=== PATIENT | female | born 1985 | race Caucasian/White ===

== ENCOUNTER → 2018-04-28 15:14 | Outpatient (CLI) | payer BC, SELFPAY ==
--- NOTE | 2018-04-28 15:18 | RAD_ITS ---
STUDY: X-RAY CHEST REASON FOR EXAM: Female, 32 years old. 2 week history of cough. TECHNIQUE: PA and lateral views of the chest. COMPARISON: None. FINDINGS: Mild degree of increased bilateral perihilar markings suggestive of possible bronchitis. No focal infiltrate is seen. There is no demonstrated pleural abnormality. Normal size heart. Normal mediastinum and elsie. Normal visualized pulmonary arteries. Normal visualized aortic arch and descending thoracic aorta. Normal visualized thoracic spine. Normal visualized ribs, clavicles, and shoulders. There is no demonstrated abnormality of the visualized soft tissue structures of the upper abdomen. RAD/Chest PA and Lateral IMPRESSION: Mild degree of increased bilateral perihilar markings suggestive of bronchitis. Electronically Signed: Michael Preciado MD at 15:34 EDT Tel [phone], Service support ,
== END ==
PROVIDERS: Visit Provider Physician Assistant Surgical
DX: R09.89 Other specified symptoms and signs involving the circulatory and respiratory systems (principal)
CPT/HCPCS: 71046

== ENCOUNTER → 2021-07-17 13:55 | Outpatient (CLI) | payer OTHER, SELFPAY | PROVIDERS: PCP Family Medicine; Referring Provider Family Medicine; Visit Provider Family Medicine | DX: Z23 Encounter for immunization (principal) ==

== ENCOUNTER 2021-12-21 05:51 | Day surgery (SDC) | payer BC, SELFPAY ==
--- NOTE | 2021-12-11 16:09 | PCM.HP.BLA ---
History and Physical Date of Admission: 12/21/21 HPI: The patient is a 36 year old female presenting for pre-operative visit. She is scheduled for hysteroscopy with endometrial ablation and IUD (Lyletta or mirena), for menorrhagia on 12/21/21. Procedure discussed along with risks, benefits and complications. Other alternatives discussed for management. Consent form signed? Yes. ? ? PAST MEDICAL HISTORY PAST MEDICAL HISTORY Diagnosis Date ? NEGATIVE MEDICAL HISTORY ? ? ? PAST SURGICAL HISTORY PAST SURGICAL HISTORY Procedure Laterality Date ? TONSILLECTOMY PRIMARY/SECONDARY <AGE 10 ? ? ? Tonsillectomy ? ? ? CURRENT MEDICATIONS Current Outpatient Medications Medication Sig Dispense Refill ? ferrous sulfate (IRON ORAL) Take by mouth. ? ? ? MAGNESIUM ORAL Take by mouth. ? ? ? ASHWAGANDHA ROOT EXTRACT ORAL Take by mouth. With fco root ? ? ? miSOPROStol (CYTOTEC) 200 mcg tablet Use 2 tablets vaginally as directed for [address] 2 tablets vaginally qhs before the procedure and 2 the morning of 4 tablet 0 ? tranexamic acid (LYSTEDA) 650 mg tablet Take 2 tablets by mouth three times daily as needed (heavy menstrual bleeding) for up to 5 days. 30 tablet 0 ? norethindrone (AYGESTIN) 5 mg tablet Take 1 tablet by mouth once daily. ONE PO Q 1 HR UNTIL BLEEDING SLOWS, UP TO 5 TABS TODAY. THEN ONE PO QID X 3 DAYS THEN TID X 3 DAYS THEN BID X 3 DAYS THEN ONE QDAY. 30 tablet 1 ? No current facility-administered medications for this visit. ? ? ALLERGIES: Patient has no known allergies. ? PERSONAL HISTORY: SOCIAL HISTORY Social History ? Tobacco Use ? Smoking status: Never Smoker ? Smokeless tobacco: Never Used Substance Use Topics ? Alcohol use: Yes ? ? Comment: Socially ? Drug use: No ? FAMILY HISTORY: FAMILY HISTORY FAMILY HISTORY Problem Relation Age of Onset ? other (Ovarian Cysts [Other]) Maternal Grandmother ? ? other (Ovarian Cysts [Other]) Mother ? ? Diabetes Father ? ? Hypertension Father ? ? Cancer Paternal Grandfather ? ? ? REVIEW OF SYMPTOMS: GENERAL: denies fevers or chills ENDOCRINOLOGY: has not been on steroids Cardiology : denies palpitations or chest pain Respiratory: denies SOB or cough Hematology: denies history of prolonged bleeding or easy bruising or VTE Allergy: Denies history of personal or family history of allergy to anesthesia ? ? PHYSICAL EXAMINATION: ? VITALS: Blood pressure 132/88, pulse 80, resp. rate 14, height 6' 0.25 (1.835 m), weight 281 lb 9.6 oz (127.7 kg), last menstrual period 12/03/2021. ? GENERAL: The patient is well nourished, well hydrated in no acute distress. , The patient is oriented to time, place, and person. NECK: Supple. No lynphadenopathy, normal thyroid, no thyromegaly. LUNGS: Clear to auscultation bilaterally. no wheezes, rhonchi or rales HEART: Regular rate and rhythm, Normal heart sounds and No murmurs or gallops ? Pelvic US on 09/27/21 Impression Retroverted fibroid uterus that measures 91 mm x 52 mm x 67 mm. The fibroid is described below. The fibroid is intramural. Fibroid(s): Size 19 mm x 23 mm x 22 mm. Mean 21.3 mm. Vol 5.034 cm?. Right, lower uterine segment. The central endometrium complex measures 11.6 mm in combined thickness. No abnormal blood flow to suggest a polyp or focal endometrial pathology is observed within the endometrial complex. The contour of the endometrial cavity was normal on 3-D imaging. Both ovaries are visualized and appear polycystic. No adnexal masses were observed. There is no free fluid visualized in the peritoneal cavity. ? EMB reviewed- benign 09/2021 pap 2018- neg w/ neg HRHPV ? IMPRESSION: menorrhagia ? PLAN: The risks/benefits/alternatives and personal involved for the planned Hysteoscop;y with endometrial ablation and IUD insertion were reviewed with the patient. Her questions were answered to her satisfaction and she desires to proceed. Consent was signed. I reviewed with her postop instructions and expectations. ? ? I have reviewed and updated past medical and surgical history, medications and allergies Assessment & Plan Assessment/Plan (1) Abnormal uterine bleeding (AUB):
[2021-12-21] VITALS (16 sets, daily range): BP systolic 149–194; BP diastolic 82–124; PULSE 66–87; RESP 16–18; TEMP 36.3–36.8; O2SAT 97–100; BMI 37.5
--- NOTE | 2021-12-21 | EMB_PTH ---
PATIENT: LILY MELCHOR LOC: [facility] [place] U#:[id number] AGE/SX: 36/F ROOM: RE12/21/[address]: Dr. Ronit Monk MD : [id number] BED: DIS: 12/21/2021 SPEC #: [id number] RECD: 12/21/21 11:18 STATUS: SAHARA LAZAR #: [id number] DEMOND: 12/21/21 00:[address]: Ronit Monk DEPT: SURGICAL PATHOLOGY RECD BY: Yogi Gomez ENTERED: 12/21/21 11:19 SP TYPE: ENDOM BX/C OTHR DR: Dr. Sudheer Chanel MD Tissues: Endometrium, NOS Procedures: Surgery Specimen Level IV HEADER OPERATION: Hysteroscopy with Natasha ablation, Mirena IUD insertion PRE-OP DIAGNOSIS: Menorrhagia TISSUE SUBMITTED: Endometrial curettings MICROSCOPIC DIAGNOSIS Endometrial curettings: Simple endometrial hyperplasia without atypia. SJ:gege 12/22/2021 MICROSCOPIC DESCRIPTION Slides are reviewed. GROSS DESCRIPTION Received in fixative is one container labeled with the patient's name and designated endometrial curettings. The specimen consists of multiple fragments of hemorrhagic soft tissue mixed with fernandez soft tissue that in aggregate measure 7.5 x 2.5 x 0.3 cm. The specimen is totally submitted in three cassettes. / THO:gege 12/21/2021 TC:5 CPT: 54110
[2021-12-21 06:28] LABS: Internal QC Validated? YES +Cl - CLEAR BKGD; Pregnancy, Urine Negative Negative
[2021-12-21] MEDS: Celecoxib 200 MG Capsule 400 MG PO (06:28)
[2021-12-21] MEDS: Acetaminophen 500 MG Tablet 1000 MG PO (06:28)
[2021-12-21] MEDS: Lactated Ringers 1,000 ML 70 ML IV (06:29)
[2021-12-21 06:43] LABS: Absolute Lymphocyte Count 2.01 X10^3/uL (0.83-4.51); Absolute Neutrophil Count 4.6 X10^3/uL (2.0-7.7); Basophil# 0.05 X10^3/uL; Basophil% 0.7 % (0-1); Eosinophils% 2.7 % (0-5); Hematocrit 40.6 % (37-47); Hemoglobin 13.4 g/dL (12.0-15.0); Lymphocyte # 2.01 X10^3/ul (0.83-4.51); Lymphocyte % 27.2 % (19-41); Mean Corpuscular Hgb 27.2 pg (27.0-32.0); Mean Corpuscular Volume 82.5 fL (81-99); Mean Platelet Vol. 11.4 fl (6.2-12.0); Monocyte# 0.55 X10^3/uL; Monocyte% 7.4 % (0-10); NRBC Flagged by Analyzer 0 % (0-5); Neutrophil # 4.58 X10^3/uL (2.7-7.7); Neutrophil % 61.9 % (47-70); Platelet Count 239 K/mm3 (150-450); RBC Distribution Width CV 16.1 % (11.6-14.6); RBC Distribution Width SD 48.4 fl (35.1-43.9); Red Blood Count 4.92 M/mm3 (4.2-5.4); White Blood Count 7.4 K/mm3 (4.4-11.0)
--- NOTE | 2021-12-21 07:36 | DCINST_ITS ---
Discharge Instructions Diet Discharge Diet: No restrictions Activity May resume sexual activity in: 2 weeks Lifting Restrictions: none Dressing / Incision Call your doctor if your incision/area has: Sudden Increased Bleeding and Foul Smelling Discharge Call your doctor if you observe: Fever of 101 or Higher and Using more than 1 pad per hour (for 2 hrs in a row) Follow Up Care Please Follow Up With: Ronit Monk MD When: 2-4 weeks or as needed. Call [phone] to make an appointment or with any concerns. Test Results: Test results from this visit will be discussed in further detail at your follow-up appointment, if applicable. Discharge Plan Admission Primary Reason for Your Visit: ENdometrial ablation and IUD insertion Attending Provider: Ronit Monk Primary Care Provider: Sudheer Chanel Discharge Orders/Prescriptions Prescriptions: Continued magnesium 250 mg Tablet 250 mg PO DAILY RF: 0 cyanocobalamin (vitamin B-12) 25 mcg Tablet 50 mcg PO DAILY RF: 0 cholecalciferol (vitamin D3) [Vitamin D3] 25 mcg (1,000 unit) Capsule 25 mcg PO DAILY RF: 0 Proestro 1 tablet PO/SL DAILY RF: 0 Other Ambulatory Orders: CBC-Complete Blood Cnt No Diff (Routine) Timeframe: 20211214 Facility: [facility] - Location: Laboratory Ordered By: Dr. Ronit Monk ,Urine (Routine) Timeframe: 20211220 Facility: [facility] - Location: Laboratory Ordered By: Dr. Ronit Monk Referrals / Follow Up: Sudheer Chanel MD [Primary Care Provider] - Disposition Disposition (needs filled in before D/C Order can be placed): Home, Self Care
--- NOTE | 2021-12-21 07:37 | PCM.OPRPT ---
Problems Associated Problem List Diagnoses (1) Abnormal uterine bleeding (AUB): Report of Operation Date of Procedure: 12/21/21 Pre-Operative Diagnosis: Menorrhagia Post-Operative Diagnosis: same Surgery/Procedure Performed:: hysteroscopy with endometrial ablation and IUD insertion Description of Surgical Findings:: normal cervix adn vagina. Lush endoemtrium Surgeon: Ronit Monk hand mold maker: yohan Type of Anesthesia: MAC/Supplemental/Local Anesthesiologist: Char Cuevas Special Medications: none Specimen's removed: none Drains: none Estimated Blood Loss (mL): 10 Fluids Replaced: 700 Description of Procedure: The patient was taken to the OR where she was prepped and draped in dorsal lithotomy position. The weighted speculum was placed in the vagina and the anterior lip of the cervix was grasped with a single-tooth tenaculum. A paracervical block was administered with 1% lidocaine with 1-200,000 epinephrine solution. The cervix was dilated serially with Hegar dilators. The 5mm hysteroscope was placed into the uterine cavity and the above findings were noted. Bilateral tubal ostia were identified. The endometrium was very lush and thick. The uterus sounded to 9.5cm and the cervical length was 4 cm. The endometrial cavity length was 5cm. The hysteroscope was removed. A gentle sharp curettage was done of the uterine cavity. The specimen was handed off and sent to pathology. The Natasha device was set to 5 cm. The instrument was then seated into the endometrial cavity and the indicator was in the green. The cervical seal balloon was inflated and the uterine integrity test was passed. The ablation procedure was initiated and completed without interruption. During the ablation procedure gentle traction was held on the tenaculum and the Natasha device was held up against the uterine fundus. When the ablation procedure was completed the Natasha was removed. The Liletta IUD was then inserted in the usual sterile fashion. The strings were cut to 2 cm. The tenaculum was removed and the tenaculum site was noted to be hemostatic. All sponge and needle counts were correct. A vaginal sweep was performed by me. The patient was awakened and taken to the recovery room in stable condition. Hysteroscopic ins: 300cc normal saline Hysteroscopic outs:100cc Findings: Endometrial cavity: Normal, no fibroids or polyps noted Cervix: Normal Vagina: Normal Grafts/Implants Used: Liletta IUD Lot [id number] exp 01/2025 Procedure Start Time: 07:43 Procedure Stop Time: 07:55 Complications none Admit VTE Documentation VTE Present on Admission: No VTE Mechan Device Prophylaxis: SCD's VTE Pharm Prophylaxis ordered?: No Reason prophylaxis not ordered:: Procedure Not Indicated
[2021-12-21] MEDS: Lidocaine 1%/Epi 1:200 (30ml) 30 ML AMPUL (07:52)
[2021-12-21] MEDS: Levonorgestrel IUD (Liletta) 1 EACH INTRA-UTER (07:53)
--- NOTE | 2021-12-21 08:34 | EKG12_ITS ---
Test Reason : HTN Blood Pressure : / mmHG Vent. Rate : 081 BPM Atrial Rate : 081 BPM P-R Int : 158 ms QRS Dur : 084 ms QT Int : 370 ms P-R-T Axes : 043 018 019 degrees QTc Int : 429 ms Normal sinus rhythm Nonspecific T wave abnormality Abnormal ECG Confirmed by MARISSA JAY, DEONTE ([id number]), editor publications NAYAN IZAGUIRRE ([id number]) on 12/25/2021 1:30:21 PM Referred By: Ronit Monk Confirmed By:DEONTE ANN MD
[2021-12-21] MEDS: Labetalol 200 MG Tablet PO (08:48)
== END 2021-12-21 10:38 | disposition home or self-care (01) ==
LOC: SDC 05:52 → AC 05:54
PROVIDERS: PCP Family Medicine; Referring Provider Obstetrics & Gynecology; Visit Provider Obstetrics & Gynecology
PROC: 0U5B8ZZ Destruction of Endometrium, Via Natural or Artificial Opening Endoscopic (ICD-10-PCS; CPT 58558; principal; 2021-12-21 07:15)
DX: N85.01 Benign endometrial hyperplasia (principal); I10 Essential (primary) hypertension; Z79.899 Other long term (current) drug therapy
CPT/HCPCS: 58563; 58300; 00952; 81025; 85025; 88305; 93005; J7120; J0330; J2405